=== PATIENT | male | born 1975 | race Caucasian/White ===

== ENCOUNTER 2020-05-31 08:12 | Outpatient (CLI) | payer OTHER, SELFPAY ==
[2020-05-31 09:10] LABS: Basophils Absolute Auto 0.1 K/mm3 (0.0-0.1); Basophils Percent Auto 0.6 % (0.2-1.2); Eosinophils Absolute Auto 0.3 K/mm3 (0-0.3); Eosinophils Percent Auto 3.8 % (0-4.4); Hematocrit 47.2 % (42.0-52.0); Hemoglobin 16.5 g/dL (14.0-18.0); Immature Granulocyte Absolute 0.07 K/mm3 (0.00-0.031); Immature Granulocyte Percent A 0.9 % (0-0.5); Lymphocytes Absolute Auto 1.09 K/mm3 (0.9-3.2); Lymphocytes Percent Auto 13.7 % (18.3-44.2); Mean Corpuscular Hemoglobin 30.2 pg (26-34); Mean Corpuscular Volume 86.4 fl (80-100); Mean Platelet Volume 11.1 fl (7.4-10.4); Monocytes Absolute Auto 0.5 K/mm3 (0.1-0.6); Monocytes Percent Auto 6.3 % (2.6-8.5); Neutrophils Percent Auto 74.7 % (45.5-73.1); Platelet Count Result 199 k/mm3 (150-375); Red Blood Count 5.46 M/mm3 (4.6-6.20)
[2020-05-31 09:19] LABS: Hemoglobin A1C 5.1 % (<5.7)
[2020-05-31 09:23] LABS: Cholesterol 160 mg/dL (0-200); HDL Direct 36 mg/dL; Triglycerides 213 mg/dL (<150)
[2020-05-31 09:34] LABS: LDL Cholesterol Direct 86 mg/dL
== END 2020-05-31 08:13 | disposition home or self-care (01) ==
LOC: ANHLAB 08:14
PROVIDERS: PCP Family Medicine; Visit Provider Nurse Practitioner Family
DX: R73.03 Prediabetes (principal); I10 Essential (primary) hypertension
CPT/HCPCS: 36415; 80061; 83036; 85025

== ENCOUNTER 2022-07-25 00:44 | Day surgery (SDC) | payer OTHER, SELFPAY ==
[2022-07-10 14:00] VITALS: BMI 32.4
--- NOTE | 2022-07-25 07:26 | WPDANESEPPF ---
Anes - Initial Pre Proc Eval Procedure: Operation Date: 07/25/22 09:45 Proposed Procedures p Screening Colonoscopy - Drew Salcedo MD Date/Time: 07/25/22 07:26 Surgeon: Drew Salcedo MD Pre Op Diagnosis: neoplasm screening Patient Data Age: 47 Gender: M Height: 1.83 m Weight: 108.6 kg Allergies Allergy/AdvReac Type Severity Reaction Status Date / Time Penicillins Allergy Unknown Unknown Verified 07/25/22 08:20 Home Medications Medication Instructions Recorded Confirmed Type loratadine 10 mg tablet (Claritin) 10 mg PO DAILY 12/30/21 07/25/22 History simethicone 180 mg capsule (Gas-X 180 mg PO BID PRN abdominal 04/27/22 07/25/22 Rx Ultra-Strength) distention #30 caps atorvastatin 80 mg tablet 80 mg PO DAILY #90 tabs 06/07/22 07/25/22 Rx citalopram 20 mg tablet 20 mg PO DAILY #90 tabs 06/07/22 07/25/22 Rx gabapentin 300 mg capsule 300 mg PO QHS 06/07/22 07/25/22 History lisinopril 10 1 tablet PO DAILY #90 tabs 06/07/22 07/25/22 Rx mg-hydrochlorothiazide 12.5 mg tablet cholecalciferol (vitamin D3) 1,250 1,250 mcg PO WEEKLY #12 tabs 06/09/22 07/25/22 Rx mcg (50,000 unit) tablet fluticasone propionate 50 2 spray intranasal DAILY PRN nasal 06/27/22 07/25/22 Rx mcg/actuation nasal congestion #16 grams spray,suspension (Allergy Relief (fluticasone)) hyoscyamine sulfate 0.125 mg 0.125 mg sublingual QID PRN 07/10/22 07/25/22 History sublingual tablet Abdominal Pain Patient hx anesthesia problems: none Family hx anesthesia problems: none Results Review: All pre-operative results and documents have been reviewed as part of the pre-operative evaluation. [facility] Past Medical History Medical History (Updated 06/09/22 @ 06:55 by Jared Leonard MD) Allergic rhinitis (~2016) Anxiety Colon cancer screening Essential (primary) hypertension (~2001) Family history of stroke (~1996) Insomnia Intermittent low back pain Restless leg syndrome Surgical History Surgical History H/O tympanostomy (~1990) b/l H/O: vasectomy (~2005) Family History Family History Father , @ 75 y/o Hypertension Family history of chronic obstructive pulmonary disease, Onset Age: 77 High cholesterol Alcohol abuse by father Cerebrovascular accident Skin cancer melanoma Diabetes mellitus, Onset Age: 77 Mother Family history of malignant neoplasm of urinary bladder Grandparent , paternal grandmother @ 54: intracerebral hemorrhage Cerebrovascular accident Hypertension Grandparent , MGM 05/2019 @ 98 y/o from Alzheimer's dementia Alzheimer's dementia, Onset Age: 78 @ 98 y/o Social History Social History 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 He and his family moved here from [place] in 2018. Smoking status: Never smoker Second hand tobacco smoke exposure: No Alcohol intake: current Drinks per week: 6 Alcohol use details: craft beer Substance use: never Substance use type: does not use Lack of Transportation: No Lack of Food: Never True Current Housing: I Have Housing Concerned About Future Housing: No Difficulty Paying Gas/Electric Bills: No Difficulty Paying for Meds: No Currently Unemployed: No Education: Bachelor's Degree Difficulty w/ Childcare or Family Care: No Living arrangements: with family Additional living arrangements comments: () w/ 2 children Occupation/Education: occupation 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
[2022-07-25 08:22] VITALS: BP 158/88; PULSE 74; RESP 16; TEMP 36.2; O2SAT 98; BMI 31.8
[2022-07-25] MEDS: LACTATED RINGERS 1,000 ML 150 ML IV CONT (08:30)
--- NOTE | 2022-07-25 08:48 | PM.HPGS ---
History of Present Illness History of Present Illness Consent: Risks, benefits, and alternatives have been discussed and questions answered. Patient agrees to proceed with procedure. Chief complaint: neoplasm screening Narrative: Guru Schultz is a 47 year old male here for first screening colonoscopy Review of Systems Constitutional: Constitutional: Denies headache(s) and Denies weakness Eyes: Eyes: Denies blurry vision ENT: Reports Normal hearing present, Denies headache(s) and Denies neck pain Cardiovascular: Cardiovascular: Denies chest pain and Denies dyspnea Respiratory: Respiratory: Denies dyspnea Gastrointestinal: Gastrointestinal: Reports no additional gastrointestinal complaints Genitourinary: Genitourinary: Denies dysuria Musculoskeletal: Musculoskeletal: Denies neck pain Integumentary/Breasts: Skin/Breast: Denies dry skin Neurologic: Reports Normal hearing present, Denies headache(s) and Denies weakness Psychiatric: Psychiatric: Denies anxiety Endocrine: Endocrine: Denies change in body appearance Hematologic/Lymphatic: Hematologic/Lymphatic: Denies easy bleeding Allergic/Immunologic: Allergic/Immunologic: Denies urticaria PMF Past Medical History Medical History (Updated 06/09/22 @ 06:55 by Jarde Leonard MD) Allergic rhinitis (~2016) Anxiety Colon cancer screening Essential (primary) hypertension (~2001) Family history of stroke (~1996) Insomnia Intermittent low back pain Restless leg syndrome Surgical History Surgical History H/O tympanostomy (~1990) b/l H/O: vasectomy (~2005) Family History Family History Father , @ 75 y/o Hypertension Family history of chronic obstructive pulmonary disease, Onset Age: 77 High cholesterol Alcohol abuse by father Cerebrovascular accident Skin cancer melanoma Diabetes mellitus, Onset Age: 77 Mother Family history of malignant neoplasm of urinary bladder Grandparent , paternal grandmother @ 54: intracerebral hemorrhage Cerebrovascular accident Hypertension Grandparent , MGM 05/2019 @ 98 y/o from Alzheimer's dementia Alzheimer's dementia, Onset Age: 79 @ 98 y/o Social History Social History 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 Smoking status: Never smoker Second hand tobacco smoke exposure: No Alcohol intake: current Drinks per week: 6 Alcohol use details: craft beer Substance use: never Substance use type: does not use Lack of Transportation: No Lack of Food: Never True Current Housing: I Have Housing Concerned About Future Housing: No Difficulty Paying Gas/Electric Bills: No Difficulty Paying for Meds: No Currently Unemployed: No Education: Bachelor's Degree Difficulty w/ Childcare or Family Care: No Living arrangements: with family Additional living arrangements comments: () w/ 2 children Occupation/Education: occupation 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 Gender identity (if verbalized by the patient): Male Sexual Orientation (if Verbalized by the Patient): Straight or Heterosexual Spiritual care concerns: No Agree to blood products: Yes Meds Home Medications and Allergies Home Medications Medication Instructions Recorded Confirmed Type loratadine 10 mg tablet (Claritin) 10 mg PO DAILY 12/30/21 07/25/22 History simethicone 180 mg capsule (Gas-X 180 mg PO BID PRN abdominal 04/27/22 07/25/22 Rx Ultra-Strength) distention #30 caps atorvastatin 80 mg tablet 80 mg PO DAILY #90 tabs 06/07/22 07/25/22 Rx citalopram 20 mg tablet 20 mg PO DAILY #90 tabs 06/07/22 07/25/22 Rx gabapentin 300 mg capsule 300
[2022-07-25 09:07] VITALS: BP 130/67; PULSE 82; RESP 22; O2SAT 96
[2022-07-25 09:17] VITALS: BP 113/76; PULSE 68; RESP 20; O2SAT 97
[2022-07-25 09:27] VITALS: BP 119/71; PULSE 66; RESP 20; O2SAT 98
== END 2022-07-25 09:41 | disposition home or self-care (01) ==
PROVIDERS: PCP Family Medicine; Visit Provider Internal Medicine Gastroenterology
PROC: 0DJD8ZZ Inspection of Lower Intestinal Tract, Via Natural or Artificial Opening Endoscopic (ICD-10-PCS; CPT 45378; principal; 2022-07-25 09:45)
DX: Z12.11 Encounter for screening for malignant neoplasm of colon (principal); I10 Essential (primary) hypertension; G25.81 Restless legs syndrome; F41.9 Anxiety disorder, unspecified; E66.9 Obesity, unspecified; Z68.31 Body mass index [BMI] 31.0-31.9, adult
CPT/HCPCS: 45378; J2704; J7120

== ENCOUNTER 2023-04-04 10:46 | Outpatient (CLI) | payer OTHER, SELFPAY ==
[2023-04-04 19:28] LABS: Alanine Aminotransferase 51 U/L (6-50); Albumin Level 4.6 g/dL (3.5-5.1); Alkaline Phosphatase 81 U/L (38-126); Anion Gap 5 mmol/L (8-16); Aspartate Amino Transferase 45 U/L (17-59); Bilirubin,Total 0.7 mg/dL (0.2-1.3); Blood Urea Nitrogen 18 mg/dL (9-20); Calcium 9.6 mg/dL (8.4-10.2); Carbon Dioxide 32 mmol/L (22-30); Chloride 101 mmol/L (98-107); Estimated Glomerular Filt Rate > 60; Glucose 99 mg/dL (65-110); Magnesium 2.1 mg/dL (1.6-2.3); Potassium 4.6 mmol/L (3.4-5.0); Sodium 138 mmol/L (137-145)
[2023-04-04 19:29] LABS: Vitamin D 25 Hydroxy 32.4 ng/mL
[2023-04-04 19:43] LABS: Basophils Percent Auto 0.5 % (0.2-1.2); Eosinophils Absolute Auto 0.3 K/mm3 (0-0.3); Hematocrit 46.2 % (42.0-52.0); Hemoglobin 15.3 g/dL (14.0-18.0); Immature Granulocyte Absolute 0.06 K/mm3 (0.00-0.031); Immature Granulocyte Percent A 0.7 % (0-0.5); Lymphocytes Absolute Auto 1.38 K/mm3 (0.9-3.2); Lymphocytes Percent Auto 16.5 % (18.3-44.2); Mean Corpuscular HGB Conc 33.1 g/dl (32-36); Mean Corpuscular Hemoglobin 29.5 pg (26-34); Mean Corpuscular Volume 89.2 fl (80-100); Mean Platelet Volume 12.2 fl (7.4-10.4); Monocytes Absolute Auto 0.5 K/mm3 (0.1-0.6); Monocytes Percent Auto 5.4 % (2.6-8.5); Neutrophils Absolute Auto 6.2 K/mm3 (1.3-6.7); Neutrophils Percent Auto 73.9 % (45.5-73.1); Platelet Count Result 192 k/mm3 (150-375); Red Blood Count 5.18 M/mm3 (4.6-6.20); Red Cell Distribution Width 12.9 % (11.5-14.5); White Blood Count 8.3 K/mm3 (4.5-10.0)
== END 2023-04-04 10:47 | disposition home or self-care (01) ==
LOC: ANHGOSHLAB 10:48
PROVIDERS: PCP Family Medicine; Visit Provider Nurse Practitioner Family
DX: E53.8 Deficiency of other specified B group vitamins (principal); E55.9 Vitamin D deficiency, unspecified; I10 Essential (primary) hypertension; J30.9 Allergic rhinitis, unspecified; R53.83 Other fatigue; Z13.29 Encounter for screening for other suspected endocrine disorder
CPT/HCPCS: 36415; 80053; 82306; 82607; 83735; 84443; 85025

== ENCOUNTER 2023-09-19 08:44 | Outpatient (CLI) | payer OTHER, SELFPAY ==
--- NOTE | ~2023-09-19 | XR_ITS ---
Left elbow Technique: AP and lateral views were obtained. Clinical History: Pain Findings: No acute fracture or dislocation is seen. Supracondylar process noted. Osseous alignment is anatomic. Joint spaces are preserved. There is no displacement of the fat pads, and soft tissues are unremarkable. Impression: No acute abnormalities. Supracondylar process at the distal third of the humerus. Reviewed, dictated and finalized at location . Impression: No acute abnormalities. Supracondylar process at the distal third of the humerus.
--- NOTE | ~2023-09-19 | XR_ITS ---
Right elbow Technique: AP and lateral views were obtained. Clinical History: Pain Findings: No acute fracture or dislocation is seen. Osseous alignment is anatomic. Joint spaces are p reserved. There is no displacement of the fat pads, and soft tissues are unremarkable. Impression: Unremarkable radiographs. Reviewed, dictated and finalized at location . Impression: Unremarkable radiographs.
== END 2023-09-19 08:45 ==
PROVIDERS: PCP Nurse Practitioner Family; Visit Provider Nurse Practitioner Family
DX: M25.521 Pain in right elbow (principal); M25.522 Pain in left elbow
CPT/HCPCS: 73070

== ENCOUNTER 2025-05-11 08:07 | Outpatient (CLI) | payer OTHER, SELFPAY ==
--- NOTE | ~2025-05-11 | CT_ITS ---
EXAMINATION: CT sinus wo con COMPARISON: None HISTORY: Chronic sinusitis TECHNIQUE: Axial images were obtained without IV contrast. Sagittal, coronal reconstruction images were obtained from the axial views. CT scan performed using dose optimization techniques including the following automated exposure control; adjustment of mA and/or kV; use of iterative reconstruction technique. Automatic exposure control was used to reduce radiation dose. Permanent radiation dose record is archived to PACS. FINDINGS: Visualized brain parenchyma, optic globes and soft tissues appear unremarkable. Frontal sinuses are unremarkable. Minimal mucosal thickening within the ethmoidal air cells. Minimal mucosal thickening in the left maxillary sinus. Right maxillary sinus mucous retention cyst 1.2 x 1.2 cm. Sphenoid sinuses are unremarkable. There is no osseous destruction or wall thickening identified. The ostiomeatal complexes are patent. Nasal septum is in the midline but posteriorly deviated to the right. There is thickening of the turbinates bilaterally with mild narrowing of the nasal cavities bilaterally. IMPRESSION: Sinusitis detailed above Reviewed, dictated and finalized at location [facility]. [employer] IMPRESSION: Sinusitis detailed above
== END 2025-05-11 08:08 | disposition home or self-care (01) ==
LOC: MICIMG 08:07
PROVIDERS: PCP Family Medicine; Visit Provider Otolaryngology
DX: J32.9 Chronic sinusitis, unspecified (principal)
CPT/HCPCS: 70486